=== PATIENT | female | born 1975 | race Caucasian/White ===

== ENCOUNTER 2020-05-13 03:18 | Emergency (ER) | payer MEDICAID ==
[~2020-05-13] VITALS: Ht 157.5 cm; Wt 53.0 kg
[2020-05-13 03:50] VITALS: BP 125/89
[2020-05-13] MEDS ORDERED: DIPHENHYDRAMINE 25MG CAPSULE PO ONE (04:15)
[2020-05-13] MEDS ORDERED: METOCLOPRAMIDE HCL 10MG TABLET PO ONE (04:15)
== END 2020-05-13 06:01 | disposition home or self-care (01) ==
LOC: ER 03:18
DX: G43.909 Migraine, unspecified, not intractable, without status migrainosus (principal)
CPT/HCPCS: 99283; J8597; Q0163